=== PATIENT | male | born 1995 | race Two or more races ===

== ENCOUNTER 2018-09-13 15:21 | Emergency (ER) | payer OTHER ==
[~2018-09-13] VITALS: Ht 175.3 cm; Wt 74.8 kg
[2018-09-13 15:58] VITALS: BP 156/77
--- NOTE | 2018-09-13 17:10 | NUR ---
patient medically cleared. discharge accompanied by [employer] in no apparnet distress noted.
== END 2018-09-13 17:09 ==
LOC: ER 15:23
DX: Z02.89 Encounter for other administrative examinations (principal)
CPT/HCPCS: 74022-TC